=== PATIENT | female | born 1950 | race Caucasian/White ===

== ENCOUNTER → 2023-11-04 10:01 | Outpatient (BNVA) | payer OTHER, SELFPAY | PROVIDERS: PCP Nurse Practitioner; Visit Provider Nurse Practitioner | DX: E03.8 Other specified hypothyroidism (principal); Z13.6 Encounter for screening for cardiovascular disorders | CPT/HCPCS: 80053; 80061; 84443; 85025 ==

== ENCOUNTER → 2024-01-05 08:38 | Outpatient (BNVA) | payer MEDICARE, OTHER, SELFPAY | PROVIDERS: PCP Nurse Practitioner; Referring Provider Nurse Practitioner; Visit Provider Surgery | DX: Z86.010 Personal history of colon polyps | CPT/HCPCS: 99203 ==

== ENCOUNTER → 2024-01-17 08:36 | Outpatient (BNVA) | payer OTHER, SELFPAY | PROVIDERS: PCP Nurse Practitioner; Visit Provider Nurse Practitioner | DX: E03.8 Other specified hypothyroidism (principal); K21.9 Gastro-esophageal reflux disease without esophagitis | CPT/HCPCS: 80053; 84443; 85025 ==

== ENCOUNTER 2024-01-18 08:35 | Day surgery (SDC) | payer MEDICARE, SELFPAY ==
[2024-01-18 08:48] VITALS: BP 170/86; PULSE 67; RESP 16; TEMP 36.6; O2SAT 97; BMI 27.4
--- NOTE | 2024-01-18 08:57 | ANES.PREANE2 ---
Pre-Anesthetic Assessment Height/Weight: Height 1.6 m Weight 70.307 kg Temp Pulse Resp BP Pulse Ox O2 Del Method 97.9 F 67 16 170/86 97 Room Air 01/18/24 08:48 01/18/24 08:48 01/18/24 08:48 01/18/24 08:48 01/18/24 08:48 01/18/24 08:48 Operation Date: 01/18/24 09:40 Proposed Procedures p Colonoscopy 82129, G0105, Z98.890,Z86.010(Not Applicable) - Isak Avendaño MD Familial anesthetic complications: None Was Beta Anshu taken within 24 hours: N/A Was Clonidine taken within 24 hours: N/A Last intake: Intake Last Liquid Date 01/17/24 Last Liquid Time 23:30 Last Solid Date 01/16/24 Last Solid Time 17:00 Social No alcohol and No tobacco Exam alert, oriented x 3, clear to auscultation bilaterally and regular rate & rhythm Airway Dentition: chipped (front chipped, glued back on) GI Gastroesophageal Reflux Disease Metabolic Thyroid Disease Anesthetic Plan ASA status: 3 Anesthesia: MAC Risk of > 500 ml blood loss (7ml/kg in children): No Medications/Allergies Home Medications Medication Instructions Recorded Confirmed Last Taken Type latanoprost 0.005 % eye drops 1 drp ophthalmic (eye) .evening 11/03/23 01/18/24 01/17/24 History fluoxetine 40 mg capsule (Prozac) 40 mg PO QAM #90 caps 11/07/23 01/18/24 01/17/24 Rx levothyroxine 50 mcg tablet 50 mcg PO DAILY #90 tabs 11/07/23 01/18/24 01/18/24 Rx (Synthroid) pantoprazole 40 mg tablet,delayed 40 mg PO DAILY #90 tabs 11/07/23 01/18/24 01/17/24 Rx release (Protonix) tizanidine 2 mg tablet 2 mg PO .at bedtime muscle 12/29/23 01/18/24 01/11/24 Rx spasticity #30 tabs Allergies Allergy/AdvReac Type Severity Reaction Status Date / Time shrimp Allergy Mild hives, Verified 01/05/24 08:56 facial swelling, enlarged tongue Sulfa (Sulfonamide Allergy Mild hives, Verified 08/14/24 08:56 Antibiotics) facial swelling, enlarged tongue PFSH Anesthesia Medical History Adult onset hypothyroidism Glaucoma Anxiety with depression Acid reflux Surgical History (Updated 01/05/24 @ 09:[address]) History of mammography, screening 2018, 2019, 2022 History of eye surgery Bilateral laser due to glaucoma History of left hip replacement 2018 History of colonoscopy with polypectomy 2014, 2016 History of bunionectomy 1993 Bilateral 2013 reverse bunionectomy with nerve History of section, classical 1977 and 1984 with BTL History of tonsillectomy and adenoidectomy History of appendectomy Family History Sister Cancer Breast Brother Cancer Bladder Family/Other Diabetes Hyperlipidemia Social History Smoking and tobacco/nicotine status: never used tobacco/nicotine Alcohol intake: never Substance/Drug Use: former Adopted: No Caregiver/support person: Yes Lives independently: Yes Household members: none Housing: House Number of children: 2 Number of grandchildren: 1 Highest education level completed: Master's Degree Current occupational status: retired Current gender identity: Female Data Anesthesia Cardiac Studies: No Data to Display
[2024-01-18] MEDS: sodium chloride 0.9% 1,000 ML 30 ML IV (09:04)
--- NOTE | 2024-01-18 09:52 | W.PM.OPSUD ---
Surgery/Procedure H&P Update DATE OF PROCEDURE: January 18, 2024 DATE H&P PERFORMED: 01/05/24 H&P UPDATE INFORMATION: Changes to prior documentation as noted here and H&P to be scanned into chart PLANNED PROCEDURE: Operation Date: 01/18/24 09:40 Proposed Procedures p Colonoscopy 64859, G0105, Z98.890,Z86.010(Not Applicable) - Isak Avendaño MD
[2024-01-18 10:32] VITALS: BP 146/63; PULSE 57; RESP 20; TEMP 36.1; O2SAT 100
[2024-01-18 10:42] VITALS: BP 157/73; PULSE 59; RESP 20; O2SAT 99
--- NOTE | 2024-01-18 11:10 | ANE.PACU2 ---
Inpatient post-anesthesia follow up: Airway intact: Yes Vital signs: Temperature 97.0 F Pulse Rate 59 Respiratory Rate 20 Blood Pressure 157/73 Pulse Oximetry 99 Oxygen Delivery Me thod Room Air Oxygen Flow Rate Fraction of Inspir ed Oxygen Hydration adequate: Yes Nausea and vomiting: No Pain level: 1 Mental status: Baseline
== END 2024-01-18 11:11 | disposition home or self-care (01) ==
PROVIDERS: PCP Nurse Practitioner; Visit Provider Surgery
PROC: 0DJD8ZZ Inspection of Lower Intestinal Tract, Via Natural or Artificial Opening Endoscopic (ICD-10-PCS; CPT 45378; principal; 2024-01-18 09:40)
DX: Z12.11 Encounter for screening for malignant neoplasm of colon (principal); Z86.010 Personal history of colon polyps; Z98.890 Other specified postprocedural states; D12.0 Benign neoplasm of cecum; D12.3 Benign neoplasm of transverse colon; D12.8 Benign neoplasm of rectum; K21.9 Gastro-esophageal reflux disease without esophagitis; E03.9 Hypothyroidism, unspecified; F41.9 Anxiety disorder, unspecified; F32.A Depression, unspecified
CPT/HCPCS: 45380; 45385; 88305; J2704; J7030

== ENCOUNTER 2024-01-25 10:20 | Outpatient (CLI) | payer MEDICARE, SELFPAY ==
--- NOTE | 2024-01-25 10:23 | XR_ITS ---
WS: [id number] Examination: XR shoulder RT min 2V* 41792 Reason for Exam: M25.50 - Pain in unspecified joint Date: 01/25/2024 Comparison: None. Findings: The bone density is mildly diminished. There is no destruction There is no displaced fracture or dislocation. XR/XR shoulder RT min 2V* [id number] Impression: No acute bony abnormalities identified.
--- NOTE | 2024-01-25 10:23 | XR_ITS ---
WS: [id number] Examination: XR cervical spine 3V* [id number] Reason for Exam: M25.50 - Pain in unspecified joint Date: 01/25/2024 Comparison: None. Findings: The JONATHAN is intact as is the C1-2 relationship. There is no prevertebral swelling. There is no wedging or compression. There is no subluxation. There is mild narrowing of the C5-6 and C6-7 disc with small anterior and posterior osteophytes Calcification over the soft tissues of the neck are identified on the right. This may be carotid in n ature. XR/XR cervical spine 3V* [id number] Impression: There is no compression or subluxation Mild C5-6 and C6-7 degenerative changes are present Questionable vascular calcification in the right neck is noted. I recommend car otid duplex imaging for further evaluation.
== END 2024-01-25 10:21 | disposition home or self-care (01) ==
LOC: RAD 10:21
PROVIDERS: PCP Nurse Practitioner; Visit Provider Nurse Practitioner
DX: M25.78 Osteophyte, vertebrae (principal); M61.9 Calcification and ossification of muscle, unspecified; M25.50 Pain in unspecified joint
CPT/HCPCS: 72040; 73030

== ENCOUNTER → 2024-02-09 14:52 | Outpatient (BNVA) | payer MEDICARE, SELFPAY | PROVIDERS: PCP Nurse Practitioner; Visit Provider Surgery | DX: Z09 Encounter for follow-up examination after completed treatment for conditions other than malignant neoplasm (principal) | CPT/HCPCS: 99213 ==

== ENCOUNTER 2024-02-25 15:30 | Outpatient (CLI) | payer MEDICARE, SELFPAY ==
--- NOTE | 2024-02-25 15:45 | USCV_ITS ---
Flor Boyd Age: 73 Gender: F : 1950 Exam Date: 02/25/2024 15:33 Ordering Phys: Jacinda Collins Technologist: CT Exam Location: [facility] [place] Indication: Risk Factors: Previous Vascular Surgery: Right Brachial BP: / Left Brachial BP: / Right Left Velocity (cm/s) Spectral Plaque Velocity (cm/s) Spectral Plaque Syst/Diast Broadening Syst/Diast Broadening 94.40/ 18.00 Prox CCA 90.10 / 17.50 76.30/ 18.00 Mid CCA 65.00 / 17.90 68.50/ 18.00 Distal CCA 59.50 / 16.10 41.70/ 11.20 Prox ICA 47.70 / 13.10 75.60/ 22.50 Mid ICA 69.60 / 19.60 58.50/ 18.40 Distal ICA 72.00 / 22.40 75.60 ECA 45.10 1.10 ICA/CCA 1.20 Antegrade Vertebral Antegrade 34.60/ 6.20 cm/s 45.00/ 8.00 cm/s Tri Subclavian Tri 141.2 119.0 0 0 FINDINGS Comparison: none available. No significant elevation of systolic or diastolic velocities. Waveforms are normal. Minimal bilateral, atherosclerotic plaque with no elevation of velocity. Antegrade vertebral arteries. CONCLUSIONS Bilateral ICA stenosis less than 50%. Mnimal carotid atherosclerosis. Dr. Jyoti Resendiz DO (Electronically Signed) Final Date: 28 February 2024 07:43 S
== END 2024-02-25 15:31 | disposition home or self-care (01) ==
LOC: RAD 15:30
PROVIDERS: PCP Nurse Practitioner; Visit Provider Nurse Practitioner
DX: R09.89 Other specified symptoms and signs involving the circulatory and respiratory systems (principal)
CPT/HCPCS: 93880

== ENCOUNTER → 2024-05-10 08:53 | Outpatient (BNVA) | payer MEDICARE, SELFPAY | PROVIDERS: PCP Nurse Practitioner; Visit Provider Nurse Practitioner | DX: I10 Essential (primary) hypertension (principal); E03.8 Other specified hypothyroidism | CPT/HCPCS: 80053; 80061; 84443; 85025 ==

== ENCOUNTER → 2024-08-09 09:35 | Outpatient (BNVA) | payer MEDICARE, SELFPAY | PROVIDERS: PCP Nurse Practitioner; Visit Provider Nurse Practitioner | DX: I10 Essential (primary) hypertension (principal); E03.8 Other specified hypothyroidism | CPT/HCPCS: 80053; 80061; 84443; 85025 ==

== ENCOUNTER → 2024-08-10 09:57 | Outpatient (BNVA) | payer MEDICARE, SELFPAY | PROVIDERS: PCP Nurse Practitioner; Visit Provider Nurse Practitioner | DX: R20.2 Paresthesia of skin (principal) | CPT/HCPCS: 82607 ==

== ENCOUNTER 2024-08-29 12:56 | Outpatient (CLI) | payer MEDICARE, SELFPAY ==
--- NOTE | 2024-08-29 13:00 | MM_ITS ---
WS: [id number] BILATERAL SCREENING DIGITAL TOMOSYNTHESIS MAMMOGRAM WITH CAD HISTORY: Z12.31 - Encounter for screening mammogram for malignant ... COMPARISON: 07/22/2023, 05/25/2019 Bilateral CC and MLO views with tomosynthesis and synthetic mammography submitted. Computer aided detection analyzed. Breast composition: There are scattered areas of fibroglandular density. No suspicious masses, microcalcifications or architectural distortion. MM/MM scr BI tomosynthesis [id number] IMPRESSION: BI-RADS: 2 - Benign. FOLLOW UP: 1 Year Follow-up
== END 2024-08-29 12:57 | disposition home or self-care (01) ==
LOC: MOBLMAM 13:01
PROVIDERS: PCP Nurse Practitioner; Visit Provider Nurse Practitioner
DX: Z12.31 Encounter for screening mammogram for malignant neoplasm of breast (principal); R92.323 Mammographic fibroglandular density, bilateral breasts
CPT/HCPCS: 77063; 77067

== ENCOUNTER → 2024-10-04 10:19 | Outpatient (BNVA) | payer MEDICARE, SELFPAY | PROVIDERS: PCP Nurse Practitioner; Referring Provider Nurse Practitioner; Visit Provider Nurse Practitioner Family | DX: L73.8 Other specified follicular disorders (principal); L82.1 Other seborrheic keratosis; D23.39 Other benign neoplasm of skin of other parts of face; D18.01 Hemangioma of skin and subcutaneous tissue; L85.3 Xerosis cutis | CPT/HCPCS: 99203 ==

== ENCOUNTER → 2025-01-24 08:27 | Outpatient (BNVA) | payer MEDICARE, SELFPAY | PROVIDERS: PCP Nurse Practitioner; Visit Provider Nurse Practitioner | DX: I10 Essential (primary) hypertension (principal); E03.8 Other specified hypothyroidism | CPT/HCPCS: 80053; 80061; 84443; 85025 ==